=== PATIENT | female | born 2000 | race Caucasian/White ===

== ENCOUNTER 2020-09-09 07:34 | Emergency (ER) | payer BC, OTHER ==
[2020-09-09 07:44] VITALS: BP 128/85; PULSE 99; RESP 18; TEMP 98.5
--- NOTE | 2020-09-09 07:53 | ED ---
General Adult HPI - General Chief complaint: Needlestick/Exposure Stated complaint: Needle Stick [facility] Time Seen by Provider: 09/09/20 07:44 Source: patient Mode of arrival: ambulatory Limitations: no limitations - History of Present Illness Initial comments: Dictation was produced using Guide dictation software. please excuse any grammatical, word or spelling errors. 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 Patient states that she stuck herself in the left second digit towards the medial aspect. 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 After the incident patient developed and irrigated the site. She is here requesting to have blood drawn. Patient did receive hepatitis B vaccine. The ROS documented in this emergency department record has been reviewed and confirmed by me. Those systems with pertinent positive or negative responses have been documented in the HPI. All other systems are other negative and/or noncontributory. PHYSICAL EXAM: General Impression: Alert and oriented x3, not in acute distress HEENT: Normocephalic atraumatic, extra-ocular movements intact, pupils equal and reactive to light bilaterally, mucous membranes moist. Cardiovascular: Heart regular rate and rhythm Chest: Able to complete full sentences, no retractions, no tachypnea Abdomen: abdomen soft, non-tender, non-distended, no organomegaly Musculoskeletal: Pulses present and equal in all extremities, no peripheral edema Motor: no focal deficits noted Neurological: CN II-XII grossly intact, no focal motor or sensory deficits noted Skin: Intact with no visualized rashes Second digit: Small pinpoint puncture presently aspect of the volar surface of the left second index finger at the level of the DIP Psych: Normal affect and mood ED course: 20-year-old female presents with accidental needlestick exposure. Signs upon arrival are within acceptable limits. Patient exposure is very low risk. Patient was offered HIV prophylactic medications. I did receive a call from lab stating that source HIV test was negative. Patient was discharged by the nurse. - Related Data Allergies Allergy/AdvReac Type Severity Reaction Status Date / Time No Known Allergies Allergy Verified 09/09/20 07:42 Review of Systems ROS Statement: Those systems with pertinent positive or pertinent negative responses have been documented in the HPI. ROS Other: All systems not noted in ROS Statement are negative. Past Medical History Past Medical History: No Reported History History of Any Multi-Drug Resistant Organisms: None Reported Past Surgical History: No Surgical Hx Reported Past Psychological History: No Psychological Hx Reported Smoking Status: Never smoker Past Alcohol Use History: None Reported Past Drug Use History: None Reported General Exam Limitations: no limitations Course Vital Signs 09/09/20 07:40 Temperature 98.5 F Pulse Rate 99 Respiratory 18 Rate Blood Pressure 128/85 O2 Sat by Pulse 100 Oximetry Disposition Clinical Impression: Needlestick injury accident Disposition: HOME SELF-CARE Instructions (If sedation given, give patient instructions): Needle Stick Injuries (ED) Is patient prescribed a controlled substance at d/c from ED?: No Referrals: Hank Gonzalez MD [Primary Care Provider] - 1-2 days Time of Disposition: 09:39
== END 2020-09-09 08:17 | disposition home or self-care (01) ==
LOC: EC 07:34
DX: S69.82XA Other specified injuries of left wrist, hand and finger(s), initial encounter (principal); W46.1XXA Contact with contaminated hypodermic needle, initial encounter; Y92.239 Unspecified place in hospital as the place of occurrence of the external cause; Y93.89 Activity, other specified; Y99.0 Civilian activity done for income or pay
CPT/HCPCS: 99283

== ENCOUNTER → 2021-12-12 | Outpatient (CLI) | payer BC ==
[2021-12-12 11:46] LABS: Basophils # (A) 0.08 X 10*3/uL (0.00-0.10); Eosinophils # (A) 0.16 X 10*3/uL (0.04-0.35); Eosinophils % (A) 1.9 %; HCT 42.3 % (37.2-46.3); HGB 13.8 g/dL (12.0-15.0); Immature Grans, Automated 0.4 %; Lymphocytes # (A) 3.27 X 10*3/uL (0.90-5.00); MCH 31.7 pg (27.0-32.0); MCHC 32.6 g/dL (32.0-37.0); MCV 97.2 fL (80.0-97.0); Mean Platelet Volume 10.4 fL (9.5-12.2); Monocytes # (A) 0.71 X 10*3/uL (0.20-1.00); Monocytes % (A) 8.5 %; NRBC Per 100 WBC 0 /100 WBCS (0.0-0.0); Neutrophils # (A) 4.14 X 10*3/uL (1.80-7.70); Neutrophils % (A) 49.2 %; Platelet Count 316 X 10*3/uL (140-440); RBC 4.35 X 10*6/uL (4.10-5.20); RDW 11.9 % (11.5-14.5); WBC 8.39 X 10*3/uL (4.50-10.00)
[2021-12-12 12:16] LABS: ALT 71 U/L (8-44); AST 48 U/L (13-35); African American GFR (CKD) 142.6 (60.0-200.0); Albumin 4.8 g/dL (3.8-4.9); Albumin/Globulin Ratio 2.28 (1.60-3.17); Alkaline Phosphatase 76 U/L (41-126); BUN/Creat Ratio 14.74 Ratio (12.00-20.00); Blood Urea Nitrogen 10.3 mg/dL (9.0-27.0); Calcium 9.6 mg/dL (8.7-10.3); Carbon Dioxide 22.2 mmol/L (20.0-27.5); Chloride 103 mmol/L (96-109); Follicle Stimulating Hormone 4.1 mIU/mL; Globulin 2.1 g/dL (1.6-3.3); Glucose 86 mg/dL (70-110); Luteinizing Hormone 6.2 mIU/mL; Potassium 3.6 mmol/L (3.5-5.5); Sodium 140 mmol/L (135-145); Total Protein 6.9 g/dL (6.2-8.2)
[2021-12-12 12:56] LABS: Rheumatoid Factor, Qnt <10 IU/mL (0-15)
[2021-12-12 14:06] LABS: Erythrocyte Sedimentation Rate 1 mm/Hr (0-20)
== END | disposition home or self-care (01) ==
LOC: LABWHC1 07:35
PROVIDERS: ATTEND Nurse Practitioner Family
DX: M25.50 Pain in unspecified joint (principal); E07.9 Disorder of thyroid, unspecified; N94.10 Unspecified dyspareunia; E55.9 Vitamin D deficiency, unspecified
CPT/HCPCS: 36415; 80053; 82306; 83001; 83002; 84146; 84403; 84439; 84443; 85025; 85652; 86038; 86431

== ENCOUNTER → 2021-12-31 | Outpatient (CLI) | payer BC ==
--- NOTE | 2021-12-31 13:45 | MR ---
EXAMINATION TYPE: MR pituitary wo/w con DATE OF EXAM: 12/31/2021 1:37 PM COMPARISON: NONE HISTORY: Hyperprolactinemia. CONTRAST: Patient received 5 mL intravenous Gadavist gadolinium contrast. Multiplanar MultiSpin echo imaging of the pituitary fossa was performed. Unenhanced followed by cont rast enhanced images are submitted. The unenhanced portion of the study fails to demonstrate evidence for hyperintense pituitary lesion. The pituitary gland is of normal size. Following contrast administration small filling defect is sug gested measuring 2.1 mm x 2.8 mm at the superior aspect of the pituitary gland. Small pituitary micro adenoma is difficult to exclude. Pituitary stalk is midline. Suprasellar cistern is unremarkable wit hout evidence for mass. Optic chiasm has a normal appearance. Cavernous sinus including the carotid vessels appear to be within normal limits. IMPRESSION: 1. I cannot exclude a pituitary microadenoma.
== END | disposition home or self-care (01) ==
LOC: RADMRIMAIN 11:55
PROVIDERS: ATTEND Nurse Practitioner Family
DX: E22.1 Hyperprolactinemia (principal)
CPT/HCPCS: 70553; A9585

== ENCOUNTER → 2022-10-23 | Outpatient (CLI) | payer BC ==
[2022-10-23 15:23] LABS: HGB 13.7 g/dL (12.0-15.0); MCH 31.8 pg (27.0-32.0); MCHC 32.6 g/dL (32.0-37.0); MCV 97.4 fL (80.0-97.0); Mean Platelet Volume 10.8 fL (9.5-12.2); NRBC Per 100 WBC 0 /100 WBCS (0.0-0.0); Platelet Count 292 X 10*3/uL (140-440); RBC 4.31 X 10*6/uL (4.10-5.20); RDW 11.8 % (11.5-14.5); WBC 6.96 X 10*3/uL (4.50-10.00)
[2022-10-23 15:40] LABS: African American GFR (CKD) 125.4 (60.0-200.0); Albumin/Globulin Ratio 2.3 (1.60-3.17); Anion Gap 11.9 mmol/L (10.00-18.00); BUN/Creat Ratio 12.38 Ratio (12.00-20.00); Blood Urea Nitrogen 9.6 mg/dL (9.0-27.0); Calcium 9.8 mg/dL (8.7-10.3); Carbon Dioxide 23.5 mmol/L (20.0-27.5); Globulin 2.2 g/dL (1.6-3.3); Non-African American GFR(CKD) 108.2 (60.0-200.0); Potassium 4.1 mmol/L (3.5-5.5); Prolactin 17.1 ng/mL (2.800-29.200); T4, Free (Free Thyroxine) 1.14 ng/dL (0.800-1.800); Total Bilirubin 0.8 mg/dL (0.30-1.20); Total Protein 7.2 g/dL (6.2-8.2)
== END | disposition home or self-care (01) ==
LOC: LABWHC1 07:09
PROVIDERS: ATTEND Obstetrics & Gynecology
DX: Z00.00 Encounter for general adult medical examination without abnormal findings (principal); E22.1 Hyperprolactinemia; R53.83 Other fatigue
CPT/HCPCS: 36415; 80053; 84146; 84439; 84443; 85027